=== PATIENT | female | born 1985 | race Hispanic/Latino ===

== ENCOUNTER 2020-08-04 00:20 | Emergency (ER) | payer BC ==
[~2020-08-04] VITALS: Ht 167.6 cm; Wt 81.6 kg
[~2020-08-04 00:20] MED LIST: LEVOTHYROXINE100 MC1 IV; SYNTHROID100 MCG PO; TYLENOL WITH C1 EACH PO; ZOFRAN4 MG PO
[2020-08-04] MEDS ORDERED: KETOROLAC TROMETHAMINE 30 MG/ML VIAL IV STA (00:51)
[2020-08-04] MEDS ORDERED: ACETAMINOPHEN 325 MG TAB PO PRN (01:00)
[2020-08-04] MEDS ORDERED: KETOROLAC TROMETHAMINE 30 MG/ML VIAL ONE (01:07)
[2020-08-04] MEDS ORDERED: ACETAMINOPHEN 325 MG TAB ONE (01:07)
[2020-08-04] MEDS ORDERED: SODIUM CHLORIDE 0.9% 50ML 50 ML ONE (01:18)
[2020-08-04] MEDS ORDERED: IOPAMIDOL 370 MG/ML 200 ML INFUS..BTL INJ ONE (01:19)
[2020-08-04] MEDS ORDERED: CIPROFLOXACIN 500 MG TAB PO STA (02:40)
[2020-08-04] MEDS ORDERED: DICYCLOMINE HCL20 MG PO (02:45)
[2020-08-04] MEDS ORDERED: CIPRO500 MG PO (02:45)
[2020-08-04 02:50] VITALS: BP 126/88
[2020-08-04] MEDS ORDERED: CIPROFLOXACIN 500 MG TAB ONE (02:52)
== END 2020-08-04 02:50 | disposition home or self-care (01) ==
LOC: FSED 00:35
DX: R10.32 Left lower quadrant pain (principal); K52.9 Noninfective gastroenteritis and colitis, unspecified; I10 Essential (primary) hypertension; E03.9 Hypothyroidism, unspecified
CPT/HCPCS: 74177; 80048; 81003; 81025; 85025; 96374; 99284; J1885; Q9967

== ENCOUNTER → 2020-09-14 | Day surgery (SDC) | payer BC ==
[~2020-09-14] MED LIST changes: +CIPRO500 MG PO; +DICYCLOMINE HCL20 MG PO; +FENTANYL CITRATE/PF 100MCG/2 ML INJ ONE; +HYOSCYAMINE SULFATE 0.5 MG/ML INJ ONE; +MIDAZOLAM HCL 2 MG/2 ML VIAL ONE; +PROPOFOL IV EMULSION 10 MG/ML 20 ML VIAL ONE
[2020-09-14 10:35] VITALS: BP 134/95
== END | disposition home or self-care (01) ==
LOC: OR 07:18
PROVIDERS: ATTEND Internal Medicine Gastroenterology
DX: K57.92 Diverticulitis of intestine, part unspecified, without perforation or abscess without bleeding (principal); K52.9 Noninfective gastroenteritis and colitis, unspecified; K62.89 Other specified diseases of anus and rectum; K64.8 Other hemorrhoids; E03.9 Hypothyroidism, unspecified; I10 Essential (primary) hypertension; Z01.812 Encounter for preprocedural laboratory examination; Z20.822 Contact with and (suspected) exposure to COVID-19; Z68.29 Body mass index [BMI] 29.0-29.9, adult
CPT/HCPCS: 36415; 45380; 81025; 85651; 86140; 86256; 86671; J1980; J2250; J2704; J3010; U0002; 45378